=== PATIENT | female | born 1945 | race Caucasian/White ===

== ENCOUNTER → 2018-01-20 | Outpatient (CLI) | payer BC, MEDICARE ==
--- NOTE | 2018-01-30 14:45 | HM ---
HOLTER MONITOR REPORT DATE OF SERVICE: Patient was monitored for 24 hours. CLINICAL INFORMATION: Baseline rhythm is sinus. Normal conduction. The average rate 71 beats per minute. Minimum of 53, maximum 120 beats per minute. Ventricular ectopic to spasm form for single PVCs. Supraventricular type icterus present form of rare single PACs, short bursts of supraventricular tachycardia were noted. The maximum number of 4 complexes. There was 1 episode of cough in what appeared to be sinus tachycardia. Five complex accelerated idioventricular rhythm was noted. No diary was available. CONCLUSION: 1. Sinus mechanism based on rhythm. 2. Rare ventricular ectopic type activity was 16 complex atrioventricular rhythm to 33, rare ventricular ectopic activity with short bursts of supraventricular tachycardia. 3. No diary was available. MMODL / IJN: [id number] /
== END | disposition home or self-care (01) ==
LOC: RADECHMAIN 12:16
PROVIDERS: ATTEND Family Medicine
DX: R55 Syncope and collapse (principal)
CPT/HCPCS: 93225; 93226

== ENCOUNTER 2018-04-24 07:27 | Day surgery (SDC) | payer MEDICARE ==
[2018-04-21 09:28] VITALS: BMI 23.3
[~2018-04-24 07:27] MED LIST: SODIUM CHLORIDE 0.9% 1,000 ML IV SCH
[2018-04-24 08:10] VITALS: PULSE 82
[2018-04-24] MEDS ORDERED: IV FLUID CONTINUATION 450 ML IV ONE (08:40)
[2018-04-24 10:05] VITALS: RESP 18
[2018-04-24 10:07] VITALS: BP 120/57
--- NOTE | 2018-04-24 12:50 | P.PCN ---
Preoperative Diagnosis: Diagnosis Recurrent syncope and presyncope Twelve-lead ECG Sinus rhythm normal OR narrow QRS normal ST segments Tilt table test Baseline blood pressure 151/72 mmHg Baseline heart rate 80 beats a minute Patient was tilted upright at an angle of 70 within 3 minutes her blood pressure dropped to 65/37 mmHg and a heart rate dropped to 52 beats a minute. She was near syncopal She was laid supine her blood pressure normalized to 130/60 mmHg Impression Almost immediate drop in blood pressure within 3 minutes, of assuming upright 70 position on tilt table testing Blood pressure dropped from 151/72 mmHg to 125/60 mmHg, then 114/56 mm mercury and then a further drop No significant bradycardia
== END 2018-04-24 10:00 | disposition home or self-care (01) ==
LOC: CATHEP 07:27
PROVIDERS: ATTEND Internal Medicine Clinical Cardiac Electrophysiology
DX: R55 Syncope and collapse (principal); R94.31 Abnormal electrocardiogram [ECG] [EKG]; Z82.49 Family history of ischemic heart disease and other diseases of the circulatory system
CPT/HCPCS: 93660

== ENCOUNTER → 2018-10-30 | Outpatient (CLI) | payer MEDICARE ==
--- NOTE | 2018-10-30 16:07 | BD ---
EXAMINATION TYPE: Axial Bone Density DATE OF EXAM: 10/30/2018 COMPARISON: NONE CLINICAL HISTORY: screening Height: 5'4 1/2 Weight: 145 FRAX RISK QUESTIONS: Secondary Osteoporosis: RISK FACTORS HISTORY OF: Postmenopausal woman: y MEDICATIONS: Additional Medications: Additional History: EXAM MEASUREMENTS: Bone mineral densitometry was performed using the [employer] System. Bone mineral density as measured about the Lumbar spine is: ----- L1-L4(G/cm2): 0.894 T Score Values are as follows: ----- L2: -2.5 ----- L3: -3.1 ----- L4: -1.9 ----- L1-L4:-2.4 Bone mineral density has: Decreased -1.8% since study of: 06/14/2016 Bone mineral density about the R hip (g/cm2): 0.779 Bone mineral density about the L hip (g/cm2): 0.766 T Score values are as follows: -----R Neck: -1.9 -----L Neck: -2.0 -----R Total: -1.2 -----L Total: -1.8 Bone mineral density has: Decreased -2.5% since study of: 06/14/2016 IMPRESSION: Osteoporosis (T Score less than -2.5). There is increased fracture risk and therapy is usually indicated based on age. Re-Screen 1-2 years. NOTE: T-SCORE=SD OF THE YOUNG ADULT MEAN.
--- NOTE | 2018-11-01 09:44 | MM ---
Reason for exam: screening (asymptomatic). Last mammogram was performed 4 years and 6 months ago. History: Patient is postmenopausal. Benign excisional biopsy of the right breast, November 07, 1997. Physical Findings: A clinical breast exam by your physician is recommended on an annual basis and results should be correlated with mammographic findings. MG 3D Screening Mammo W/Cad Bilateral CC and MLO view(s) were taken. Prior study comparison: April 18, 2014, bilateral MG screening mammo w CAD. November 04, 2010, bilateral digital screening mammo w/CAD. There are scattered fibroglandular densities. No significant changes when compared with prior studies. ASSESSMENT: Negative, BI-RAD 1 RECOMMENDATION: Routine screening mammogram of both breasts in 1 year.
== END ==
LOC: RADMAMWWP 14:32
PROVIDERS: ATTEND Family Medicine
DX: Z12.31 Encounter for screening mammogram for malignant neoplasm of breast (principal); M81.0 Age-related osteoporosis without current pathological fracture
CPT/HCPCS: 77063; 77067; 77080

== ENCOUNTER → 2020-07-25 | Outpatient (CLI) | payer MEDICARE ==
--- NOTE | 2020-07-28 11:28 | MM ---
Reason for exam: screening (asymptomatic). Last mammogram was performed 1 year and 9 months ago. History: Patient is postmenopausal. Benign excisional biopsy of the right breast, November 07, 1997. Physical Findings: A clinical breast exam by your physician is recommended on an annual basis and results should be correlated with mammographic findings. MG 3D Screening Mammo W/Cad Bilateral CC and MLO view(s) were taken. Prior study comparison: October 30, 2018, bilateral MG 3d screening mammo w/cad. April 18, 2014, bilateral MG screening mammo w CAD. The breast tissue is heterogeneously dense. This may lower the sensitivity of mammography. Stable benign calcifications. No significant changes when compared with prior studies. ASSESSMENT: Benign, BI-RAD 2 RECOMMENDATION: Routine screening mammogram of both breasts in 1 year.
== END | disposition home or self-care (01) ==
LOC: RADMAMWWP 09:09
PROVIDERS: ATTEND Family Medicine
DX: Z12.31 Encounter for screening mammogram for malignant neoplasm of breast (principal)
CPT/HCPCS: 77063; 77067

== ENCOUNTER → 2020-09-22 | Outpatient (CLI) | payer MEDICARE ==
--- NOTE | 2020-09-23 11:09 | XR ---
EXAMINATION TYPE: XR ribs LT DATE OF EXAM: 09/22/2020 COMPARISON: None HISTORY: Pain TECHNIQUE: Two-view left RIBS FINDINGS: No acute fractures or dislocations are evident. No pneumothorax is evident. Anterior ribs i s visualized are unremarkable. There is some costochondral cartilage calcification of the inferior ri bs IMPRESSION: 1. No acute osseous abnormality left ribs
== END | disposition home or self-care (01) ==
LOC: RADXRMAIN 15:59
PROVIDERS: ATTEND Family Medicine
DX: S20.20XD Contusion of thorax, unspecified, subsequent encounter (principal)

== ENCOUNTER → 2020-11-10 | Outpatient (CLI) | payer MEDICARE ==
--- NOTE | 2020-11-10 16:03 | BD ---
EXAMINATION TYPE: Axial Bone Density DATE OF EXAM: 11/10/2020 COMPARISON: 10/30/2018 CLINICAL HISTORY: Height: 64 IN Weight: 138 LBS RISK FACTORS HISTORY OF: Active: YES Postmenopausal woman: AGE 52 MEDICATIONS: Additional Medications: NONE EXAM MEASUREMENTS: Bone mineral densitometry was performed using the [employer] System. Bone mineral density as measured about the Lumbar spine is: ----- L1-L4(G/cm2): 0.899 T Score Values are as follows: ----- L2: -2.5 ----- L3: -2.9 ----- L4: -1.9 ----- L1-L4: -2.3 Bone mineral density has: Increased 0.3% since study of: 10/30/2018 Bone mineral density about the R hip (g/cm2): 0.721 Bone mineral density about the L hip (g/cm2): 0.736 T Score values are as follows: -----R Neck: -2.3 -----L Neck: -2.2 -----R Total: -1.7 -----L Total: -2.0 Bone mineral density has: Decreased -5.2% since study of: 10/30/2018 IMPRESSION: Osteopenia (T Score between -2.5 and -1). There is slightly increased risk of fracture and the patient may be considered for treatment. Re-Screen 2-5 years. NOTE: T-SCORE=SD OF THE YOUNG ADULT MEAN.
== END | disposition home or self-care (01) ==
LOC: RADBDWWP 09:03
PROVIDERS: ATTEND Family Medicine
DX: M85.88 Other specified disorders of bone density and structure, other site (principal)
CPT/HCPCS: 77080